=== PATIENT | male | born 1980 | race American Indian/Alaskan Native ===

== ENCOUNTER 2019-01-03 00:29 | Emergency (ER) | payer SELFPAY ==
[2019-01-03 01:11] VITALS: BP 117/80
[2019-01-03] MEDS ORDERED: IPRATROPIUM/ALBUTEROL SULFATE 3 ML AMPUL.NEB IH ONE (01:36)
--- NOTE | 2019-01-03 02:05 | XRay Report ---
CHEST 1 VIEW 01/03/2019 1:44 AM INDICATION / CLINICAL INFORMATION: cough x 2 weeks. COMPARISON: None available. FINDINGS: SUPPORT DEVICES: None. HEART / MEDIASTINUM: No significant abnormality. LUNGS / PLEURA: No significant pulmonary or pleural abnormality. No pneumothorax. ADDITIONAL FINDINGS: No significant additional findings. IMPRESSION: 1. No acute findings. Signer Name: Irina De Souza MD Signed: 01/03/2019 2:00 AM Workstation Name: [id number]
--- NOTE | 2019-01-03 02:09 | Emergency Department Report ---
ED General Adult HPI - General Chief complaint: Upper Respiratory Infection Stated complaint: COUGH SORE THROAT Time Seen by Provider: 01/03/19 01:20 Source: patient Mode of arrival: Ambulatory Limitations: No Limitations - History of Present Illness Initial comments: Patient presents to the emergency department with a chief complaint of a cough 2 weeks. Patient states she was seen at another facility and was given steroids and cough medicine which has not improved his symptoms. Patient does endorse having mild throat pain but denies a fever. Patient denies chest pain, shortness of breath, abdominal pain. -: Gradual Consistency: constant Improves with: none Worsens with: none Associated Symptoms: denies other symptoms Treatments Prior to Arrival: none - Related Data Previous Rx's Medication Instructions Recorded Last Taken Type ALBUTEROL Inhaler (OR & NICU) 2 puff IH Q4HR PRN #1 inhalation 01/03/19 Unknown Rx [ProAir HFA Inhaler] Azithromycin [Zithromax Z-OBED] 250 mg PO DAILY #6 tablet 01/03/19 Unknown Rx Benzonatate [Tessalon Perles] 100 mg PO Q8HR PRN #20 capsule 01/03/19 Unknown Rx Codeine Phosphate/Guaifenesin 180 ml PO Q12HR PRN #180 liquid 01/03/19 Unknown Rx [Guaifenesin-Codeine Syrup] Naproxen [Naprosyn] 500 mg PO BID PRN #20 tablet 01/03/19 Unknown Rx predniSONE [Deltasone] 20 mg PO DAILY #15 tablet 01/03/19 Unknown Rx Allergies Allergy/AdvReac Type Severity Reaction Status Date / Time No Known Allergies Allergy Verified 01/03/19 00:45 ED Review of Systems ROS: Stated complaint: COUGH SORE THROAT Other details as noted in HPI Constitutional: denies: chills, fever Eyes: denies: eye pain, eye discharge, vision change ENT: denies: ear pain, throat pain Respiratory: cough. denies: shortness of breath, wheezing Cardiovascular: denies: chest pain, palpitations Endocrine: no symptoms reported Gastrointestinal: denies: abdominal pain, nausea, diarrhea Genitourinary: denies: urgency, dysuria Musculoskeletal: denies: back pain, joint swelling, arthralgia Skin: denies: rash, lesions Neurological: denies: headache, weakness, paresthesias Psychiatric: denies: anxiety, depression Hematological/Lymphatic: denies: easy bleeding, easy bruising ED Past Medical Hx - Past Medical History Previous Medical History?: No - Surgical History Past Surgical History?: No - Social History Smoking Status: Never Smoker Substance Use Type: None - Medications Home Medications: Home Medications Medication Instructions Recorded Confirmed Last Taken Type ALBUTEROL Inhaler (OR & NICU) 2 puff IH Q4HR PRN #1 inhalation 01/03/19 Unknown Rx [ProAir HFA Inhaler] Azithromycin [Zithromax Z-OBED] 250 mg PO DAILY #6 tablet 01/03/19 Unknown Rx Benzonatate [Tessalon Perles] 100 mg PO Q8HR PRN #20 capsule 01/03/19 Unknown Rx Codeine Phosphate/Guaifenesin 180 ml PO Q12HR PRN #180 liquid 01/03/19 Unknown Rx [Guaifenesin-Codeine Syrup] Naproxen [Naprosyn] 500 mg PO BID PRN #20 tablet 01/03/19 Unknown Rx predniSONE [Deltasone] 20 mg PO DAILY #15 tablet 01/03/19 Unknown Rx ED Physical Exam - General Limitations: No Limitations General appearance: alert, in no apparent distress - Head Head exam: Present: atraumatic, normocephalic - Eye Eye exam: Present: normal appearance, PERRL, EOMI - ENT ENT exam: Present: mucous membranes moist - Neck Neck exam: Present: normal inspection - Respiratory Respiratory exam: Present: normal lung sounds bilaterally, wheezes. Absent: respiratory distress, rales - Cardiovascular Cardiovascular Exam: Present: regular rate, normal rhythm. Absent: systolic murmur, diastolic murmur, rubs, gallop - GI/Abdominal GI/Abdominal exam: Present: soft, normal bowel sounds. Absent: distended, tenderness - Rectal Rectal exam: Present: deferred - Extremities Exam Extremities exam: Present: normal inspection - Back Exam Back exam: Present: normal inspection - Neurological Exam Neurological exam: Present: alert, oriented X3, CN II-XII intact. Absent: motor sensory deficit - Psychiatric Psychiatric exam: Present: normal affect, normal mood - Skin Skin exam: Present: warm, dry, intact, normal color. Absent: rash ED Course Vital Signs 01/03/19 00:59 Temperature 98.1 F Pulse Rate 77 Respiratory 18 Rate Blood Pressure 117/80 O2 Sat by Pulse 97 Oximetry ED Medical Decision Making - Radiology Data Radiology results: report reviewed [facility] [address] [place] [address] XRay Report Signed Patient: SHERINE FORBES MR#: [id number] 51 : 1980 Acct:[id number] Age/Sex: 38 / M ADM Date: 01/03/19 Loc: ED Attending Dr: Ordering Physician: DORITA ECHAVARRIA MD Date of Service: 01/03/19 Procedure(s): XR chest 1V ap Accession Number(s): [id number] cc: DORITA ECHAVARRIA MD Fluoro Time In Minutes: CHEST 1 VIEW 01/03/2019 1:44 AM INDICATION / CLINICAL INFORMATION: cough x 2 weeks. COMPARISON: None available. FINDINGS: SUPPORT DEVICES: None. HEART / MEDIASTINUM: No significant abnormality. LUNGS / PLEURA: No significant pulmonary or pleural abnormality. No pneumothorax. ADDITIONAL FINDINGS: No significant additional findings. IMPRESSION: 1. No acute findings. Signer Name: Irina De Souza MD Signed: 01/03/2019 2:00 AM Workstation Name: [id number] Transcribed By: DT Dictated By: Edward De Souza MD Electronically Authenticated By: Edward De Souza MD Signed Date/Time: 01/03/19199 DD/ 015 TD/TT: - Medical Decision Making Results discussed with the patient improved after Duone[facility] Critical care attestation.: If time is entered above; I have spent that time in minutes in the direct care of this critically ill patient, excluding procedure time. ED Disposition Clinical Impression: Bronchitis Disposition: DC-01 TO HOME OR SELFCARE Is pt being admited?: No Does the pt Need Aspirin: No Condition: Stable Instructions: Acute Bronchitis (ED) Additional Instructions: return if worse Prescriptions: predniSONE [Deltasone] 20 mg PO DAILY #15 tablet Codeine Phosphate/Guaifenesin [Guaifenesin-Codeine Syrup] 180 ml PO Q12HR PRN #180 liquid PRN Reason: pain Naproxen [Naprosyn] 500 mg PO BID PRN #20 tablet PRN Reason: pain ALBUTEROL Inhaler (OR & NICU) [ProAir HFA Inhaler] 2 puff IH Q4HR PRN #1 inhalation PRN Reason: Shortness Of Breath Benzonatate [Tessalon Perles] 100 mg PO Q8HR PRN #20 capsule PRN Reason: Cough Azithromycin [Zithromax Z-OBED] 250 mg PO DAILY #6 tablet Referrals: [facility] [Provider Group] - 3-5 Days [facility] [Provider Group] - 3-5 Days ALPHONSE DSOUZA MD [Staff Physician] - 3-5 Days Time of Disposition: 02:12
[2019-01-03] MEDS ORDERED: AZITHROMYCIN 250 MG TAB PO ONE (02:19)
== END 2019-01-03 02:36 | disposition home or self-care (01) ==
LOC: ED 00:29
DX: J40 Bronchitis, not specified as acute or chronic (principal); Z79.899 Other long term (current) drug therapy
CPT/HCPCS: 71045; 94640; 94644